=== PATIENT | female | born 1975 | race African-American/Black ===

== ENCOUNTER 2017-06-25 07:39 | Emergency (ER) | payer OTHER ==
[~2017-06-25] VITALS: Ht 172.7 cm; Wt 111.0 kg
[~2017-06-25 07:39] MED LIST: ALBU8.5H8 IH; ALPR1TAB5 PO; HYDR-3965 PO
[2017-06-25] MEDS ORDERED: VENL-68 PO (07:54)
[2017-06-25] MEDS ORDERED: LAMO100 PO (07:54)
[2017-06-25] MEDS ORDERED: DIPH25 PO (07:54)
[2017-06-25] MEDS ORDERED: GABA-533 PO (07:54)
[2017-06-25] MEDS ORDERED: ONDANSETRON HCL 4 MG/2 ML VIAL IM ONE (11:00)
[2017-06-25] MEDS ORDERED: HYDROmorphone 2 MG/ML SYRINGE IM ONE (11:00)
[2017-06-25 14:00] VITALS: BP 145/83
== END 2017-06-25 14:23 | disposition home or self-care (01) ==
LOC: EMS 07:39
DX: G51.0 Bell's palsy (principal); J34.89 Other specified disorders of nose and nasal sinuses; M54.9 Dorsalgia, unspecified; G89.29 Other chronic pain; J45.909 Unspecified asthma, uncomplicated; K21.9 Gastro-esophageal reflux disease without esophagitis; F17.210 Nicotine dependence, cigarettes, uncomplicated; F12.90 Cannabis use, unspecified, uncomplicated
CPT/HCPCS: 96372; 99284; 99406; J1170; J2405

== ENCOUNTER 2017-07-14 20:11 | Emergency (ER) | payer OTHER ==
[~2017-07-14] VITALS: Ht 175.3 cm; Wt 109.1 kg
[~2017-07-14 20:11] MED LIST changes: +DIPH25 PO; +GABA-533 PO; +LAMO100 PO; +VENL-68 PO
[2017-07-14] MEDS ORDERED: AMOX TR/POT CLAV 875 MG/125 MG TABLET PO ONE (21:30)
[2017-07-14 22:10] VITALS: BP 156/80
== END 2017-07-14 22:37 | disposition home or self-care (01) ==
LOC: EMS 20:15
DX: T17.298A Other foreign object in pharynx causing other injury, initial encounter (principal); F32.9 Major depressive disorder, single episode, unspecified; F41.9 Anxiety disorder, unspecified; J45.909 Unspecified asthma, uncomplicated; K21.9 Gastro-esophageal reflux disease without esophagitis; F17.210 Nicotine dependence, cigarettes, uncomplicated; F12.10 Cannabis abuse, uncomplicated; X58.XXXA Exposure to other specified factors, initial encounter; Y93.89 Activity, other specified; Y92.89 Other specified places as the place of occurrence of the external cause; Y99.8 Other external cause status
CPT/HCPCS: 99283